=== PATIENT | male | born 1995 | race African-American/Black ===

== ENCOUNTER 2020-05-02 23:46 | Emergency (ER) | payer OTHER ==
[2020-05-03 00:37] LABS: EOS % 0.1 % (0.0-4.0); HEMATOCRIT 37.7 % (42.0-52.0); HEMOGLOBIN 12.8 g/dL (13.5-18.0); MEAN CELL VOLUME 91 fl (78-100); MEAN CORPUSCULAR HEMOGLOBIN 31 pg (27-31); MEAN CORPUSCULAR HGB CONC 34 g/dL (33-37); MONO # 0.6 (0.20-0.80); NEU # 5.2 (1.40-6.50); PLATELET COUNT 189 K/mm3 (130-400); RED BLOOD COUNT 4.14 M/mm3 (4.20-5.60); RED CELL DISTRIBUTION WIDTH 12.5 % (11.5-14.5); WHITE BLOOD COUNT 6.9 K/mm3 (4.8-10.8)
[2020-05-03 00:43] LABS: ALBUMIN 4.7 g/dL (3.5-5.0); POTASSIUM 3.6 mmol/L (3.5-5.1); SODIUM 144 mmol/L (136-145)
[2020-05-03 00:44] LABS: CALCIUM 9.7 mg/dL (8.3-10.5)
[2020-05-03 00:45] LABS: GLUCOSE 114 mg/dL (75-110); TOTAL PROTEIN 7.6 g/dL (6.4-8.3)
[2020-05-03 00:46] LABS: CARBON DIOXIDE 22 mmol/L (22-29)
[2020-05-03 00:47] LABS: TOTAL BILIRUBIN 0.6 mg/dL (0.2-1.2)
[2020-05-03 00:50] LABS: AST-SGOT 16 U/L (5-34)
[2020-05-03 00:51] LABS: ALCOHOL IN-HOUSE < 10 mg/dL (<10)
[2020-05-03 00:52] LABS: URINE APPEARANCE HAZY; URINE BILIRUBIN NEGATIVE (NEGATIVE); URINE BLOOD NEGATIVE (NEGATIVE); URINE COLOR YELLOW; URINE GLUCOSE NEGATIVE (NEGATIVE); URINE KETONE 2+ (NEGATIVE); URINE LEUKOCYTE ESTERASE NEGATIVE (NEGATIVE); URINE MUCUS PRESENT (NOT PRESENT); URINE NITRATE NEGATIVE (NEGATIVE); URINE PROTEIN(semi-quant) TRACE mg/dL (NEGATIVE); URINE UROBILINOGEN NORMAL (NORMAL)
[2020-05-03 00:52] LABS: ALT/SGPT 14 U/L (0-55)
[2020-05-03 00:53] LABS: ACETAMINOPHEN < 1 ug/mL
[2020-05-03] MEDS ORDERED: ZYPREXA ZYDIS5 M1 PO (08:01)
[2020-05-03 08:15] VITALS: BP 157/102
== END 2020-05-03 08:20 ==
LOC: ED 23:46
PROVIDERS: Nurse Practitioner
DX: F23 Brief psychotic disorder (principal)

== ENCOUNTER → 2020-05-03 | Outpatient (CLI) | payer OTHER ==
[~2020-05-03] MED LIST: ZYPREXA ZYDIS5 M1 PO
[2020-05-03 22:40] VITALS: BP 136/79
--- NOTE | 2020-05-03 22:40 | NUR ---
Patient arrived via [facility] custody in back seat of car. Patient handcuffed and has no clothing on. IM haldol and Covid 19 swab orders received from Prabha CORREA. At 2245 IM haldol 10mg reviewed and given IM in right thigh without problems. Patient cooperative but using delusional speech. "Don't send the fire" "I'm allergic to the unknown". Instucted officers to wait 20 minutes after injection. No signs or symptoms of adverse reactions.
== END ==
LOC: AMSURD 22:40
DX: Z20.828 Contact with and (suspected) exposure to other viral communicable diseases (principal)
CPT/HCPCS: J1630